=== PATIENT | male | born 1995 | race Native Hawaiian/Other Pacific Islander ===

== ENCOUNTER 2017-01-18 05:44 | Day surgery (SDC) | payer OTHER ==
[2017-01-11 10:27] LABS: ABSOLUTE EOSINOPHILS # (AUTO) 0.1 10^3/uL (0.0-0.6); ABSOLUTE LYMPHOCYTES (AUTO) 1.5 10^3/uL (0.5-4.7); ABSOLUTE MONOCYTES (AUTO) 0.4 10^3/uL (0.1-1.4); ABSOLUTE NEUT (AUTO) 2.5 10^3/uL (1.7-8.2); BASOPHILS % (AUTO) 0.5 % (0-2); EOSINOPHILS % (AUTO) 2.4 % (0-6); HEMATOCRIT 46.8 % (37.9-51.0); HEMOGLOBIN 16.5 g/dL (13.5-17.0); HGB HCT DIFFERENCE 2.7; LYMPHOCYTES % (AUTO) 33.6 % (13-45); MEAN CORPUSCULAR HEMOGLOBIN 29.5 pg (27.0-33.4); MEAN CORPUSCULAR HGB CONC 35.2 g/dL (32.0-36.0); MEAN CORPUSCULAR VOLUME 84 fl (80-97); MONOCYTES % (AUTO) 8.6 % (3-13); RED BLOOD COUNT 5.59 10^6/uL (4.35-5.55); RED CELL DISTRIBUTION WIDTH 12.6 % (11.5-14.0); SEGMENTED NEUTROPHILS % (AUTO) 54.9 % (42-78); WHITE BLOOD COUNT 4.6 10^3/uL (4.0-10.5)
[2017-01-11 10:34] LABS: AMORPHOUS SEDIMENT,URINE TRACE /HPF; APPEARANCE,URINE SLIGHTLY-CLOUDY; BILIRUBIN,URINE NEGATIVE (NEGATIVE); GLUCOSE, URINE NEGATIVE (NEGATIVE); KETONES,URINE NEGATIVE (NEGATIVE); LEUKOCYTE ESTERASE,URINE NEGATIVE (NEGATIVE); NITRITE,URINE NEGATIVE (NEGATIVE); PROTEIN,URINE NEGATIVE (NEGATIVE); UROBILINOGEN,URINE NEGATIVE mg/dL (<2.0)
[2017-01-11 10:41] LABS: ANION GAP 16 (5-19); BLOOD UREA NITROGEN 17 mg/dL (7-20); CALCIUM 10.1 mg/dL (8.4-10.2); CARBON DIOXIDE 28 mmol/L (22-30); CHLORIDE 102 mmol/L (98-107); CREATININE RESULT 1.04 mg/dL (0.52-1.25); GLUCOSE 84 mg/dL (75-110); POTASSIUM 4.4 mmol/L (3.6-5.0); SODIUM 145.5 mmol/L (137-145)
--- NOTE | 2017-01-11 11:20 | EKG REPORT ---
SEVERITY:- NORMAL ECG - SINUS RHYTHM : Confirmed by: Delaney العلي 11-Jan-2017 11:19:42
[~2017-01-18 05:44] MED LIST: CEFAZOLIN 2 GM/D5W RTU 2 GM/50 ML RTUPB IV PRN; LACTATED RINGERS 1000 ML IV PRN; LIDOCAINE 0.5% INJ-PF (5 MG/ML) 50 ML SDV SUBCUT PRN
[2017-01-18] MEDS ORDERED: BUPIVACAINE HCL 0.5 % INJ/PF 30 ML SDV ONE (06:45)
[2017-01-18] MEDS ORDERED: FENTANYL CITRATE INJ/PF 250 MCG/5 ML AMPULE ONE (07:32)
[2017-01-18] MEDS ORDERED: MIDAZOLAM 2 MG/2 ML INJ ONE (07:33)
[2017-01-18] MEDS ORDERED: ACETAMINOPHEN 100 ML IV ONE (07:33)
[2017-01-18] MEDS ORDERED: PROPOFOL INJ 200 MG/20 ML VIAL IV ONE (07:33)
[2017-01-18] MEDS ORDERED: MORPHINE SULFATE 10 MG/ML INJ IV PRN ×2 (08:24→11:16)
[2017-01-18] MEDS ORDERED: PROMETHAZINE HCL INJ 25 MG/1 ML VIAL IV PRN ×2 (08:24)
[2017-01-18] MEDS ORDERED: FENTANYL CITRATE INJ/PF 100 MCG/2 ML AMPUL IV PRN ×3 (08:24)
[2017-01-18] MEDS ORDERED: MEPERIDINE HCL/PF INJ 25 MG/1 ML DISP.SYRIN IV PRN (08:24)
[2017-01-18] MEDS ORDERED: DIPHENHYDRAMINE HCL 50 MG/ML VIAL IV PRN (08:24)
[2017-01-18] MEDS ORDERED: OXYCODONE-ACETAMINOPHEN 5-325 MG TABLET PO PRN ×2 (08:24)
[2017-01-18] MEDS ORDERED: ONDANSETRON HCL INJ/PF 4 MG/2 ML SDV IV PRN (11:16)
--- NOTE | 2017-01-18 11:37 | Operative Report ---
Operative Report PREOPERATIVE DIAGNOSIS: Right scaphoid nonunion with avascular necrosis POSTOPERATIVE DIAGNOSIS: Same OPERATION: Open reduction internal fixation right scaphoid with placement of vascularized bone graft SURGEON: JEREMY DÍAZ ANESTHESIA: GA COMPLICATIONS: None ESTIMATED BLOOD LOSS: Minimal PROCEDURE: Indication for above procedure: 21-year-old male who sustained injury while lifting weights to his right wrist. Patient did not seek medical treatment immediately and then was found to have a scaphoid fracture with possible nonunion. CT scan was done demonstrating nonunion with increased sclerosis of the proximal pole indicative of avascular necrosis. I then sent to me to for further evaluation and treatment. We discussed pathophysiology and prognosis of patient's injury. Risks and benefits were explained patient verbalized understanding consented for the surgical procedure. Procedure In Detail: Patient was seen and evaluated in the preoperative holding area. The RIGHT upper extremity was initialized and marked. Patient received 2g of Ancef IV for bacterial prophylaxis. Patient was taken back to the operative room where transferred to the operative table and placed under general anesthesia. Once they were adequately anesthetized a nonsterile tourniquet was placed on the upper extremity. A surgical team debriefing was performed ensuring all instrumentation was available, the surgical procedure was discussed with possible concerns reviewed. The upper extremity was prepped with chlorhexidine and alcohol and draped in a sterile fashion. A timeout was done identifying correct patient, procedure and extremity everyone in attendance agree with this and verbalized no concerns. The extremity was elevated the tourniquet was inflated to 250 mmHg. A longitudinal skin incision was made just ulnar to Guadalupe's tubercle. Blunt dissection was performed through the soft tissues. Branches of the superficial radial nerve were identified and retracted with a skin flap. I then entered the most distal portion of the fourth dorsal compartment and retracted the EDC tendons in a ulnar direction. I then opened the third dorsal compartment and retracted the EPL tendon ulnarly. The capsule of the distal radius was then identified. Given patient's findings of the CT scan and location of his nonunion site preoperatively decision was made to proceed with a Sotoreanos capsular vascularized bone graft. C-arm was utilized to examine the wrist to ensure there is no evidence of midcarpal or scapholunate instability. Once this was confirmed I continued with preparation of my vascularized bone graft. With C-arm fluoroscopy the dimensions of the capsular pedicle in line with the capitate were drawn out. And excised down to the distal radius careful attention was made to avoid disruption of the scapholunate ligament. I then identified the bone graft site proximally within the distal radius. I was measured to be 1.5 centimeters in width and 1 cm in length. I then drilled out the dimensions of my graft with 0.45 K wire prior to elevation of the graft once again confirmed on AP and lateral projection that the radial carpal articulation was not can be violated. Once this was confirmed utilizing a osteotome the bone graft was loosened radially/ulnarly along with distally. I then carefully dissected the capsular tissue which contained the fourth ECA pedicle. This was carefully lifted and the most distal portion of my bone graft was removed. This was then covered in saline and I turned my attention to fixation of the scaphoid. The scaphoid nonunion site demonstrated a small area of cortical shell. The vascular supply of the scaphoid was also intact along the dorsal scaphoid ridge and was protected and not violated throughout the entirety of the case. Utilizing the appropriate size K wire for a mini Acutrak screw was placed along the volar aspect of the scaphoid and slightly ulnarly given the proximal pole nonunion. A second anti-rotational pin was placed. This measured to be 24 mm thus 4 mm was subtracted. I then drilled to the but not through the distal cortex. The countersink drill was then used for the proximal aspect. A 20 mm mini Acutrak screw was then placed and provided excellent compression at the fracture site. C-arm fluoroscopy radiographs were utilized confirming appropriate placement of the screw just volarly without evidence of disruption of the distal STT joint. The screw was appropriately countersunk without evidence of irritation. Then turned my attention to placement of my vascularized bone graft. Nonunion site was debrided utilizing small curettes and a rongeur. The cystic defect within the nonunion site was debrided with the curettes. Cancellus bone graft was then packed into the defect until filled. A small trough was then made for placement of my bone graft. The vascularized bone graft was then contoured to fit the trough defect within the nonunion site. A 2.4 mm Arthrex anchor was then placed just dorsally and radially within the distal scaphoid area the tourniquet was deflated. Any peripheral vasculature was carefully quite with bipolar cautery I had good bleeding from my capsular pedicle into the cancellus bone. With the I placed each limb of the suture through the graft providing bone tunnels this was then secured into position. I got excellent fixation of my bone graft into the trough. There was no evidence of radiocarpal impingement with range of motion. The wound was then copiously irrigated with normal saline. The bone graft donor site was then packed with DBX putty and the remaining cancellus bone that was contoured from my previous vascularized bone graft. The extensor retinaculum was then loosely reapproximated with 3-0 Vicryl suture. There was no evidence of extensor tendon impingement. The wound was once again irrigated with normal saline. Subcutaneous tissues were closed with interrupted 3-0 Monocryl. Skin was closed a running subcuticular 4-0 Monocryl reinforced with Dermabond and Steri-Strips. 20 mL of 0.5% Marcaine with epinephrine was injected for postoperative pain control. Wound was dressed with 4 x 4's and patient was placed in a dorsal blocking/thumb spica splint with the wrist in 20 of extension. Sponge counts, instrument counts, needle counts counts were correct. Patient was then awoken from anesthesia. Transferred from the operating room table to the operating room stretcher. There was no intraoperative complications patient tolerated procedure well stable to PACU. Postoperative plan: Patient will follow-up in the office with me in 2 weeks. At which point he will be placed in a thumb spica cast. Patient will continue thumb spica cast for a total of 4 weeks. He will then be set up with occupational therapy at the [facility] and be fitted for a thermoplastic thumb spica splint which she will continue at all times. Patient will begin wrist range of motion approximately 3 months postoperatively or until union is confirmed. Patient will also be set up for a bone stimulator given the preoperative nonunion and avascular necrosis.
--- NOTE | 2017-01-18 12:26 | PDOC DISCHARGE SUMMARY ---
Discharge Summary (SDC) - Discharge Final Diagnosis: Right Scaphoid Nonunion Date of Surgery: 01/18/17 Discharge Date: 01/18/17 Condition: Good Treatment or Instructions: Schedule Follow Up w/ Dr. Jhonny Howell @ [facility] to be seen in 10-14 days or as scheduled [place]: [employer]: [place]: Keep splint clean/dry/intact. Ice and elevate May begin finger range of motion attempting to make full fist. Stool softener of choice when on pain medication. Prescriptions: Oxycodone HCl/Acetaminophen [Percocet 5-325 mg Tablet] 1 - 2 tab PO ASDIR PRN # 50 tablet PRN Reason: Discharge Diet: As Tolerated Respiratory Treatments at Home: Deep Breathing/Coughing Discharge Activity: No Lifting Over 10 Pounds, No Lifting/Push/Pulling Report the Following to Your Physician Immediately: Fever over 101 Degrees, Unusual Bleeding, Redness, Swelling, Warmth, Numbness, Tingling Sensation
[2017-01-18] MEDS: OXYCODONE-ACETAMINOPHEN 5-325 MG TABLET PO PRN ×2 (13:45→13:50)
[2017-01-18 14:11] VITALS: BP 116/72
[2017-01-18] MEDS ORDERED: SUCCINYLCHOLINE CHLORIDE INJ 200 MG/10 ML VIAL ONE (14:53)
[2017-01-18] MEDS ORDERED: LIDOCAINE 2% INJ-PF (20 MG/ML) 10 ML AMPUL ONE (14:53)
[2017-01-18] MEDS ORDERED: DEXAMETHASONE SOD PHOSPHATE INJ 4 MG/1 ML VIAL ONE (14:53)
[2017-01-18] MEDS ORDERED: ONDANSETRON HCL INJ/PF 4 MG/2 ML SDV ONE (14:53)
[2017-01-18] MEDS ORDERED: METOCLOPRAMIDE HCL INJ/PF 10 MG/2 ML SDV ONE (14:53)
== END 2017-01-18 13:45 | disposition home or self-care (01) ==
LOC: OROUT 05:44
PROVIDERS: ATTEND Orthopaedic Surgery
PROC: 0PR Upper Bones, Replacement (ICD-10-PCS; 2017-01-18)
PROC: 0PSM04Z Reposition Right Carpal with Internal Fixation Device, Open Approach (ICD-10-PCS; principal; 2017-01-18 08:00)
DX: S62.034K Nondisplaced fracture of proximal third of navicular [scaphoid] bone of right wrist, subsequent encounter for fracture with nonunion (principal); X58.XXXD Exposure to other specified factors, subsequent encounter
CPT/HCPCS: 93005; 36415; 85025; 80048; 81001; 71020; 73110; 93010; 25440; C1713; C1769; J2250; J1100; J3010; J2765; J0330; J2405; J2704; J3490; J0690; J0131; 01830